=== PATIENT | female | born 1995 | race Caucasian/White ===

== ENCOUNTER 2016-11-15 15:57 | Emergency (ER) | payer BC ==
[2016-11-15 16:46] VITALS: BP 102/58
--- NOTE | 2016-11-15 17:41 | UC ---
[facility] HPI - HPI Summary HPI Summary: The patient comes in today for: 1. Tooth pain, the site (lower left) appears by her evaluation to be filled with pus and was swollen and bleeding.l Onset: Yesterday. Palliative/provocative: Chewing on the surgery site makes it worse. Ibuprofen makes it better. Quality: sore, sharp Region: All the other surgery sites are good. The only problem is the lower left. Severity: 5/10 Time: Comes and goes. Associated symptoms: Event: The patient had all four of her wisdom teeth removed by an oral surgeon in [place], [place]. Her mother called the oral surgeon who said for the patient to see one up here, but when she tried to do this, she found out that the oral surgeon's office was closed. She states that the surgery are of the lower left was "not bleeding much." Previous treatment; She is on Amoxicillin and has 3 days worth. She was also given ibuprofen 600 mg to be taken every 6 hours. Fevers: None. * - History of Current Complaint Chief Complaint: UCDentalProblem Stated Complaint: DENTAL Time Seen by Provider: 11/15/16 17:25 Hx Obtained From: Patient Hx Last Menstrual Period: 10/23/16 ?: No - Allergies/Home Medications Allergies/Adverse Reactions: Allergies Allergy/AdvReac Type Severity Reaction Status Date / Time No Known Allergies Allergy Verified 11/15/16 16:46 Home Medications: Home Medications ValACYclovir (*) [Valtrex 500 mg (*)] 500 mg PO DAILY 11/15/16 [History Confirmed 11/15/16] PMH/Surg Hx/FS Hx/Imm Hx Previously Healthy: No - Herpes simplex, Acne, family planning/BCP Endocrine History Of: Denies: Diabetes, Thyroid Disease, Hyperthyroidism, Hypothyroidism, Dyslipidemia Cardiovascular History Of: Denies: Cardiac Disorders, Hypertension, Pacemaker/ICD, Myocardial Infarction , Congestive Heart Failure, Atrial Fibrillation, Deep Vein Thrombosis, Bleeding Disorders Respiratory History Of: Denies: COPD, Asthma, Bronchitis, Pneumonia, Pulmonary Embolism GI/ History Of: Denies: Gastroesophageal Reflux, Ulcer, Gastrointestinal Bleed, Gall Bladder Disease, Kidney Stones, Diverticulitis, Renal Disease, Urosepsis Neurological History Of: Denies: TIA, CVA, Dementia, Seizures, Migraine Psychological History Of: Reports: Anxiety Denies: Depression, Bipolar Disorder, Schizophrenia, Post Traumatic Stress Disorder Cancer History Of: Denies: Lung Cancer, Colorectal Cancer, Breast Cancer, Prostate Cancer, Cervical Cancer Other History Of: Negative For: HIV, Hepatitis B, Hepatitis C, Anticoagulant Therapy - Surgical History Surgical History: Yes Surgery Procedure, Year, and Place: WISDOM TEETH EXTRACTIONS - Family History Known Family History: Positive: Hypertension Negative: Cardiac Disease, Diabetes - Social History Occupation: Student Lives: Alone Alcohol Use: Weekly Substance Use Type: Marijuana Smoking Status (MU): Never Smoked Tobacco Review of Systems Constitutional: Negative Skin: Negative Eyes: Negative ENT: Negative Respiratory: Negative Cardiovascular: Negative Gastrointestinal: Negative Genitourinary: Negative All Other Systems Reviewed And Are Negative: Yes Physical Exam Triage Information Reviewed: Yes Appearance: Well-Appearing - She is smiling during the exam., No Pain Distress Vital Signs: Initial Vital Signs Temp 99.6 F 11/15/16 16:35 Pulse 74 11/15/16 16:35 Resp 16 11/15/16 16:35 BP 102/58 11/15/16 16:35 Pulse Ox 100 11/15/16 16:35 Vital Signs Reviewed: Yes Eyes: Positive: Conjunctiva Clear. Negative: Discharge ENT: Positive: Hearing grossly normal, Other: - Lower left molar area appears normal. I see no exposed bone or erythema or edema. There is no purulent drainage.. Negative: Pharyngeal erythema, Nasal congestion, Nasal drainage, TM bulging, TM dull, TM red, Tonsillar swelling, Tonsillar exudate Dental: Negative: Gross Decay/Caries @, Dental Fracture @ Neck: Negative: Supple, Nontender, No Lymphadenopathy, Nuchal Rigidity Respiratory: Positive: Chest non-tender, Lungs clear, No respiratory distress, No accessory muscle use. Negative: Crackles, Stridor Cardiovascular: Positive: RRR, No Murmur Abdomen Description: Positive: Nontender, No Organomegaly, Soft. Negative: Distended, Hernia @ Musculoskeletal: Positive: Strength Intact, ROM Intact Neurological: Positive: Alert, Muscle Tone Normal Psychological: Positive: Age Appropriate Behavior, Consolable Skin: Negative: rashes, breakdown Dental Complaint Course/Dx - Course Course Of Treatment: Patient was told that I did not see much, but that there could be a problem below the surface--I'm not a dentist or oral surgeon. However, she was told that we could strengthen her antibiotic and ibuprofen and/ or add a [place] to her treatment regimen until she can be seen by an oral surgeon. She wanted the stronger amoxicillin and ibuprofen. - Differential Dx/Diagnosis Differential Diagnosis/Dx: Dental Abscess, Dental Caries Provider Diagnoses: Oral surgery site pain (lower left jaw)--possibe surgical wound infection. Discharge - Discharge Plan Condition: Stable Disposition: HOME Additional Instructions: Please finish the Augmentin in place of the amoxicillin you were given by the oral surgeon and take the 800 mg of ibuprofen as needed for pain between now and the time you see your oral surgeon (as soon as possible). Please use a back-up method of control while on your antibiotic.
== END 2016-11-15 18:11 | disposition home or self-care (01) ==
LOC: UCCORT 15:57
DX: K08.409 Partial loss of teeth, unspecified cause, unspecified class (principal)
CPT/HCPCS: 99212; G0463